=== PATIENT | male | born 1930 | race Caucasian/White ===

== ENCOUNTER 2016-12-10 10:09 | Inpatient (IN) ==
[2016-12-10] MEDS ORDERED: SODIUM CHLORIDE 0.9% 1,000 ML IV STA (10:24)
[2016-12-10] MEDS ORDERED: ONDANSETRON 4 MG/2 ML VIAL IV STA (10:27)
--- NOTE | 2016-12-10 10:29 | Emergency Department Note ---
Bill Duckworth Jamie, am scribing for, and in the presence of, Ramirez Pritchett MD 10: 26. Yarely Duckworth James D, MD, personally performed the services described in this documentation, ascribed by Darwin Khan in my presence, and it is both accurate and complete . Arrival - Arrival Chief Complaint: Abdominal / Flank Pain Stated Complaint: extremely weak and nausea ED Nursing Triage Note: ABD PAIN WITH N/V ONSET THIS AM Mode of Arrival: Wheelchair Limitations: No Limitations Source: Patient, RN Notes Reviewed Time Seen by Provider: 12/10/16 10:23 - History of Present Illness HPI Narrative: Patient is an 86 y/o white male who is presented to the ED by for evaluation of nausea, SOB, weakness, and abdominal pain. states sxs onset this morning. She reports patient being nauseated but unable to vomit due to previous surgery. Patient has no other pain or sxs at time of exam. Onset (ago): hour(s) (3) Consistency: constant Severity: moderate Allergies/Adverse Reactions: Allergies Allergy/AdvReac Type Severity Reaction Status Date / Time sulfamethoxazole Allergy Severe RASH Verified 12/10/16 10:17 [From Bactrim] trimethoprim [From Bactrim] Allergy Severe RASH Verified 12/10/16 10:17 Home Medications: Home Medications Medication Instructions Recorded Confirmed Type Aspirin [Ecotrin] 81 mg PO QAM 06/16/15 12/10/16 History Atorvastatin [Lipitor] 40 mg PO QAM 06/16/15 12/10/16 History Losartan/Hydrochlorothiazide 1 each PO QAM 06/16/15 12/10/16 History [Losartan-Hctz 50-12.5 mg Tab] Pantoprazole Sodium [Protonix] 40 mg PO QPM 06/16/15 12/10/16 History Tamsulosin HCl [Flomax] 0.4 mg PO BEDTIME 06/16/15 12/10/16 History HydrOXYzine PAMOATE CAP [Vistaril 25 mg PO TID PRN 04/24/16 12/10/16 History Cap] Nitroglycerin Sl Tab [Nitrostat] 0.4 mg SL Q5M PRN #1 bottle 04/26/16 12/10/16 Rx Magnesium Chloride [Slow Mag] 64 mg PO BEDTIME 08/03/16 12/10/16 History Memantine [Namenda] 5 mg PO BID #60 tablet 08/21/16 12/10/16 Rx QUEtiapine [SEROquel] 25 mg PO BEDTIME #30 tablet 08/21/16 12/10/16 Rx LORazepam TAB [Ativan Tab] 0.5 mg PO QID PRN 08/30/16 12/10/16 History Ondansetron Tab [Zofran Tab] 4 mg PO QAM PRN 12/10/16 12/10/16 History Review of System - Review of System 12 point system: reviewed and no additional remarkable complaints except as stated - Review of System Constitutional: Present: weakness. Absent: chills, diaphoresis, fever Eyes: Absent: vision change Respiratory: Present: respiratory distress. Absent: cough Cardiovascular: Absent: chest pain Gastrointestinal: Present: abdominal pain, nausea. Absent: vomiting, diarrhea Musculoskeletal: Absent: joint swelling Skin: Absent: rash, change in color Neurological: Absent: headache, weakness, numbness, confusion Hematological/Lymphatic: Absent: easy bleeding, easy bruising Medical,Surgical,& Family Hx - Medical History Cardio: History of: CAD, Hypertension Psychological: History of: Anxiety Disorders, Depression Neurology: History of: Dementia Endocrine: History of: Dyslipidemia Renal: History of: Renal Problems (stricture) Gastrointestinal: History of: GERD Musculoskeletal: History of: Back/Neck Problems (neck surgery) - Surgical History Cardiac Surgeries: Sugical HX of: Cardiac Catheterization (STENT X'S 2013) Neurologic Surgeries: Surgical HX of: Neurologic Surgery (neck surgery) Abdominal Surgeries: Surgical HX of: Abdominal Surgery (1959'S vagotomy), Appendectomy Reproductive Surgeries: Surgical HX of;: Prostate Surgery Orthopedic Surgeries: Surgical HX of;: Orthopedic Surgery (right shoulder) - Family History Family History: Reports;: Family Cancer (Brother, Mother) Comment Only: Family Diabetes (Mother), Family Hypertension (Mother) - Social History Smoking Status: Never smoker Exam Vital Signs: Vital Signs Temperature 97.5 F L 12/10/16 10:12 Pulse Rate 75 12/10/16 10:12 Respiratory Rate 18 12/10/16 10:12 Blood Pressure 87/45 12/10/16 10:12 O2 Sat by Pulse Oximetry 90 L 12/10/16 10:12 GENERAL: This is a well-nourished well-developed disheveled white male in no apparent distress. VITAL SIGNS: Reviewed HEENT: Head is atraumatic and normocephalic. Pupils are equal round react to light. Extraocular movements are intact. Oropharynx is benign with moist mucous membranes. NECK: Neck is soft and supple without tenderness. There are no masses. There is no lymphadenopathy. LUNGS: Lungs are clear to auscultation. Chest rises symmetrically. There is no chest wall tenderness. CV: Heart is regular rate and rhythm without murmurs rubs or gallops. ABDOMEN: Abdomen is soft, nontender to palpation. There are no abdominal abnormal masses palpated. There is no organomegaly. Bowel sounds are present and active. SKIN: Skin is warm and dry. No rash. EXTREMITIES: Patient has full range of motion without tenderness. There is no pedal edema. NEUROLOGIC: Awake, alert. Cranial nerves II through XII are grossly intact. Motor is 5 over 5 in all extremities bilaterally. Course - Consultations Consultation #1: Discussed with Dr. Torres. Patient will be admitted to Dr. Collins service. Initial orders written for him. Time: 11:49 Results - Labs CBC & BMP: 12/10/16 10:43 12/10/16 10:43 Lab Results: I have reviewed the patients labs - EKG EKG results: interpreted by ERMD - Impressions EKG: Normal sinus rhythm with a rate of 66, right bundle branch block, nonspecific ST-T wave changes. - Diagnostic Findings Procedure: Chest x-ray: image reviewed by me (Left-sided atelectasis), CT: report reviewed by me (CT head: No acute intracranial lesion or hemorrhage.) Disposition Clinical Impression: Generalized weakness, Hypotension, Dementia, Nausea Case discussed with: patient's family Disposition: Still a Patient Condition: Guarded
[2016-12-10] MEDS ORDERED: ONDANSETRON 4 MG/2 ML VIAL ONE (10:39)
--- NOTE | 2016-12-10 10:58 | CT Report ---
History: Generalized weakness. Nausea and vomiting Date: 12/10/2016 Study: CT head without contrast Comparison exam: CT head August 20, [address] sections were obtained through the head without IV contrast. Total DLP measures 1195.1 mGy*cm. The ventricles are midline in position without evidence of hydrocephalus. There is [id number] diffuse cerebral atrophy. There is no mass or parenchymal hemorrhage. There is no gross CT evidence of acute cortical stroke. There is a small amount of ill-defined low density in the periventricular white matter without mass effect compatible with changes of small vessel disease. There are small chronic lacunar infarction in the right putamen. There is a prominent perivascular space inferiorly in the left putamen. There is no acute extra-axial hematoma. There is mild distal carotid artery calcification. There is no acute abnormality of the calvarium. The partially visualized paranasal sinuses and mastoid air cells are clear. Impression: No acute intracranial process. 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 No acute process compared to the previous study PROCEDURE INTERPRETED AT [facility] DEPARTMENT OF RADIOLOGY Final Report Signed by: Dr. Harriet Cam
[2016-12-10 10:59] LABS: Basophils % 0.5 % (0.0-0.8); Eosinophils # 0.1 10*3/uL (0.0-0.87); Eosinophils % 3.2 % (0.00-10.9); Hematocrit 38.9 VOL% (42.0-52.0); Immature Granulocytes % 0.2 %; Immature Granulocytes Absolute 0.01 #; Lymphocytes # 1.3 10*3/uL (1.4-4.0); Lymphocytes % 28.6 % (21.2-54.2); Mean Corpuscular HGB Conc 33.4 GM/DL (32-36); Mean Corpuscular Hemoglobin 29 PG (27-34); Mean Platelet Volume 10.2 FL (9.6-12.0); Monocytes # 0.3 10*3/uL (0.11-0.8); Monocytes % 7.6 % (1.7-12.7); Neutrophils # 2.6 10*3/uL (1.4-7.4); Neutrophils % 59.9 % (38.7-73.9); Platelet Count 199 T/CUMM (130-400); Red Blood Count 4.47 MC/CUMM (3.8-5.5); Red Cell Distribution Width 13.8 % (9.3-17.3); White Blood Count 4.4 T/CUMM (4-12)
[2016-12-10 11:22] LABS: Lactic Acid 2.2 MMOL/L (0.4-2.0)
--- NOTE | 2016-12-10 11:23 | XRay Report ---
History: Generalized weakness. Nausea and vomiting Date: 12/10/2016 Study: Chest x-ray single view portable Comparison exam: August 03, 2016 The cardiomediastinal silhouette is unchanged. The pulmonary vasculature is not engorged. There is shallow inspiration with some mild platelike subsegmental atelectasis and/or scarring in the lower lungs, similar to the previous study. There is no pleural effusion. Osseous structures are similar. Impression: Shallow inspiration with platelike scar and or subsegmental atelectasis in the lower lungs similar to the previous exam PROCEDURE INTERPRETED AT [facility] DEPARTMENT OF RADIOLOGY Final Report Signed by: Dr. Harriet Cam
[2016-12-10 11:24] LABS: Albumin 3.5 G/DL (3.4-5.0); Bilirubin,Total 0.6 MG/DL (0.2-1.0); Calcium 8.7 MG/DL (8.5-10.1); Osmolality,Calculated 294.6 MOS/KG (273-304); Potassium 3.7 MMOL/L (3.5-5.1); Total Protein 6.1 G/DL (6.4-8.3)
--- NOTE | 2016-12-10 11:48 | EKG Report ---
Stationary ECG Study [facility] ER Test Date: 12/10/2016 11:46:46 AM Pat Name: MARK EUBANKS Department: Room: Gender: M Vice President Research: : 1930 Requested by: Ramirez Lobo Order Number: [id number] Reading MD: SAMIR LORA Intervals Hinkle Rate: 66 P: 44 SC: 196 QRS: -6 QRSD: 160 T: 5 QT: 436 QTc: 449 Interpretive Statements SINUS RHYTHM RIGHT BUNDLE BRANCH BLOCK Electronically Signed On 12-10-16 11:52:01 TIME CLOCK MECH[employer]IC by SAMIR LORA [email or web address]
[2016-12-10 12:20] LABS: Apearance,Urine CLEAR (Clear); Bilirubin,Urine Negative (Negative); Blood, Urine Negative (Negative); Glucose,Urine (UA) Negative (Negative); Hyaline Casts,Urine 22 /LPF (0-3); Ketones,Urine Negative (Negative); Mucus,Urine Occasional /LPF (Occasional); Nitrite,Urine Positive (Negative); Protein,Urine Negative; RBC,Urine 1 /HPF (0-4); Squamous Epithelial Cell,Urine Occasional /HPF (0-10); Urine Color Amber (Yellow); Urine Specific Gravity 1.009 (1.001-1.035); WBC,Urine <1 /HPF (0-6)
[2016-12-10] MEDS: SODIUM CHLORIDE 0.9% 1,000 ML IV SCH ×2 (13:10→21:39)
[2016-12-10] MEDS: ACETAMINOPHEN 325 MG TABLET PO PRN (14:14)
[2016-12-10] MEDS ORDERED: ONDANSETRON 4 MG TABLET PO PRN (15:38)
[2016-12-10] MEDS ORDERED: LORazepam 0.5 MG TABLET PO ONE (16:00)
[2016-12-10] MEDS ORDERED: HydrOXYzine PAMOATE 25 MG CAPSULE PO PRN (16:04)
[2016-12-10] MEDS ORDERED: NITROGLYCERIN SL 0.4 MG TABLET SL PRN (16:06)
[2016-12-10] MEDS: IBUPROFEN 200 MG TABLET PO PRN (20:40)
[2016-12-10] MEDS: MAGNESIUM CHLORIDE 64 MG TABLET PO SCH (20:40)
[2016-12-10] MEDS: DOCUSATE SODIUM 100 MG CAPSULE PO SCH (20:40)
[2016-12-10] MEDS: LORazepam 0.5 MG TABLET PO SCH (20:41)
[2016-12-10] MEDS: TAMSULOSIN 0.4 MG CAPSULE PO SCH (20:41)
[2016-12-10] MEDS: MEMANTINE 5 MG TABLET PO SCH (20:41)
[2016-12-10] MEDS ORDERED: QUEtiapine 25 MG TABLET PO SCH (21:00)
[2016-12-11] MEDS: SODIUM CHLORIDE 0.9% 1,000 ML IV SCH ×3 (04:52→21:08)
[2016-12-11 07:05] LABS: Basophils % 0.4 % (0.0-0.8); Eosinophils # 0.2 10*3/uL (0.0-0.87); Eosinophils % 3.9 % (0.00-10.9); Hemoglobin 11.1 GM/DL (14.0-18.0); Immature Granulocytes % 0.2 %; Immature Granulocytes Absolute 0.01 #; Lymphocytes # 1.3 10*3/uL (1.4-4.0); Lymphocytes % 26.4 % (21.2-54.2); Mean Corpuscular HGB Conc 32.6 GM/DL (32-36); Mean Corpuscular Hemoglobin 29 PG (27-34); Mean Corpuscular Volume 88.8 FL (87-102); Mean Platelet Volume 9.9 FL (9.6-12.0); Monocytes # 0.4 10*3/uL (0.11-0.8); Monocytes % 8.5 % (1.7-12.7); Neutrophils % 60.6 % (38.7-73.9); Platelet Count 146 T/CUMM (130-400); Red Blood Count 3.83 MC/CUMM (3.8-5.5); Red Cell Distribution Width 13.7 % (9.3-17.3); White Blood Count 4.9 T/CUMM (4-12)
[2016-12-11 07:45] LABS: Albumin 2.7 G/DL (3.4-5.0); Bilirubin,Total 0.4 MG/DL (0.2-1.0); Osmolality,Calculated 293.4 MOS/KG (273-304); Potassium 3.9 MMOL/L (3.5-5.1); Total Protein 4.8 G/DL (6.4-8.3)
--- NOTE | 2016-12-11 07:49 | Family Practice History&Phys ---
Assessment and Plan (1) Dementia Status: Chronic Assessment and plan: 12/11/2016: No new therapy is indicated. Current Visit: Yes (2) Generalized weakness Status: Acute Assessment and plan: 12/11/2016: We will ask physical therapy to evaluate. Current Visit: Yes History of Present Illness Chief complaint: Nausea and abdominal pain History of present illness: Mr. Hernandez is a 86 year old male Patient is a 86-year-old white male who is brought to the emergency room yesterday with complaint of nausea, abdominal pain and not acting right. Patient has a history of dementia and getting a history is most difficult. He denies any abdominal pain this morning. According to his he has a good appetite but has bouts of recurring nausea that he complains of. This seems to have no effect on his appetite and he has not had any vomiting or diarrhea associated with it. He has not had any documented weight loss there is no history of any blood in the stool. Has not had any fever or chills. He denies any urinary symptoms. Once again history is most difficult. Home Medications Medication Instructions Recorded Confirmed Type Aspirin [Ecotrin] 81 mg PO QAM 06/16/15 12/10/16 History Atorvastatin [Lipitor] 40 mg PO QAM 06/16/15 12/10/16 History Losartan/Hydrochlorothiazide 1 each PO QAM 06/16/15 12/10/16 History [Losartan-Hctz 50-12.5 mg Tab] Pantoprazole Sodium [Protonix] 40 mg PO QPM 06/16/15 12/10/16 History Tamsulosin HCl [Flomax] 0.4 mg PO BEDTIME 06/16/15 12/10/16 History HydrOXYzine PAMOATE CAP [Vistaril 25 mg PO TID PRN 04/24/16 12/10/16 History Cap] Nitroglycerin Sl Tab [Nitrostat] 0.4 mg SL Q5M PRN #1 bottle 04/26/16 12/10/16 Rx Magnesium Chloride [Slow Mag] 64 mg PO BEDTIME 08/03/16 12/10/16 History Memantine [Namenda] 5 mg PO BID #60 tablet 08/21/16 12/10/16 Rx QUEtiapine [SEROquel] 25 mg PO BEDTIME #30 tablet 08/21/16 12/10/16 Rx LORazepam TAB [Ativan Tab] 0.5 mg PO QID PRN 08/30/16 12/10/16 History Ibuprofen [Advil] 200 mg PO Q6HR PRN 12/10/16 12/10/16 History Ondansetron Tab [Zofran Tab] 4 mg PO Q4-6H PRN 12/10/16 12/10/16 History Allergies Allergy/AdvReac Type Severity Reaction Status Date / Time sulfamethoxazole Allergy Severe RASH Verified 12/10/16 10:17 [From Bactrim] trimethoprim [From Bactrim] Allergy Severe RASH Verified 12/10/16 10:17 - Constitutional Constitutional: Present: malaise, weakness. Absent: chills, fever(s), weight loss - EENT Eyes: Absent: blurry vision, loss of vision Ears: Absent: decreased hearing, ear pain Nose, mouth and throat: Absent: nasal congestion, sinus pressure, sore throat - Cardiovascular Cardiovascular: Absent: chest pain at rest, dyspnea, dyspnea on exertion, orthopnea, palpitations, PND - Respiratory Respiratory: Absent: cough, wheezing, snoring - Gastrointestinal Gastrointestinal: Present: abdominal pain, nausea, vomiting. Absent: diarrhea, dyspepsia, dysphagia, early satiety, hematochezia, melena - Genitourinary Genitourinary: Absent: dysuria, urinary frequency, urinary incontinence - Musculoskeletal Musculoskeletal: Absent: back pain, joint swelling - Neurological Neurological: Present: confusion. Absent: abnormal gait, focal weakness, numbness, paresthesias - Psychiatric Psychiatric: Present: confusion, difficulty concentrating, memory loss. Absent : auditory hallucinations, panic attacks - Endocrine Endocrine: Absent: fatigue, polydipsia, polyphagia - Hematologic/Lymphatic Hematologic/Lymphatic: Absent: easy bleeding, easy bruising Medical,Surgical,& Family Hx - Medical History Cardio: History of: CAD, Hypertension Psychological: History of: Anxiety Disorders, Depression Neurology: History of: Dementia HEENT: History of: Ear Problem (hard of hearing), Dental Problems (dentures) Endocrine: History of: Dyslipidemia Renal: History of: Renal Problems (stricture) Gastrointestinal: History of: GERD Musculoskeletal: History of: Back/Neck Problems (neck surgery) - Surgical History Cardiac Surgeries: Sugical HX of: Cardiac Catheterization (STENT X'S 2 2013) Neurologic Surgeries: Surgical HX of: Neurologic Surgery (neck surgery) Abdominal Surgeries: Surgical HX of: Abdominal Surgery (1960'S vagotomy), Appendectomy Reproductive Surgeries: Surgical HX of;: Prostate Surgery Orthopedic Surgeries: Surgical HX of;: Orthopedic Surgery (right shoulder) - Family History Family History: Reports;: Family Cancer (Brother, Mother) Comment Only: Family Diabetes (Mother), Family Hypertension (Mother) - Social History Smoking Status: Never smoker Exam - Constitutional Vitals: Period Temp Pulse Resp BP Sys/Puente Pulse Ox Last 24 Hr 97.5 F-98.0 F 56-81 18-20 112-138/65-75 20-98 Exam: General: Objective patient is a well-developed white male in no acute distress. When asked about specifics of his history he rambles into a disjointed diatribe which is impossible to follow. Thankfully his was there to provide some specifics. HEENT: Pupils equal and reactive to light. Patent nares and airway Neck: No meningismus, adenopathy, thyromegaly. There are no auscultated carotid bruits. Cardiovascular: Regular rhythm. No murmurs or gallops Chest: Clear to auscultation without rales rhonchi wheezes. Abdomen: Soft nontender to palpation No masses, rebound, guarding or tenderness. Neuro: Cranial nerves intact and DTRs and strength symmetric in all extremities. Patient is able to follow simple commands. Dermatologic: No evidence of abnormal lesions or masses. Musculoskeletal: There is no joint swelling or tenderness or deformity. Psychiatric: Patient certainly has flight of ideas but no obvious hallucinosis. His affect is normal. Results - Labs CBC & BMP: 12/11/16 06:50 12/11/16 06:50 Lab Results: I have reviewed the past 24 hour labs
[2016-12-11] MEDS: ONDANSETRON 4 MG/2 ML VIAL IV PRN ×2 (08:12→15:57)
[2016-12-11] MEDS ORDERED: PANTOPRAZOLE 40 MG TABLET PO SCH (09:00)
[2016-12-11] MEDS: LORazepam 0.5 MG TABLET PO SCH ×3 (09:31→20:59)
[2016-12-11] MEDS: DOCUSATE SODIUM 100 MG CAPSULE PO SCH ×2 (09:32→21:01)
[2016-12-11] MEDS: ASPIRIN EC 81 MG TABLET PO SCH (09:32)
[2016-12-11] MEDS: LOSARTAN 50 MG TABLET PO SCH (09:33)
[2016-12-11] MEDS: ATORVASTATIN 40 MG TABLET PO SCH (09:33)
[2016-12-11] MEDS: MEMANTINE 5 MG TABLET PO SCH ×2 (09:33→21:01)
[2016-12-11] MEDS: ACETAMINOPHEN 325 MG TABLET PO PRN ×2 (10:53→22:57)
[2016-12-11] MEDS: TAMSULOSIN 0.4 MG CAPSULE PO SCH (20:59)
[2016-12-11] MEDS: QUEtiapine 25 MG TABLET PO SCH (21:00)
[2016-12-11] MEDS: MAGNESIUM CHLORIDE 64 MG TABLET PO SCH (21:00)
[2016-12-11] MEDS: guaiFENesin 200 MG/10 ML UDCUP PO PRN (22:50)
[2016-12-12] MEDS: SODIUM CHLORIDE 0.9% 1,000 ML IV SCH ×4 (00:16→21:05)
[2016-12-12] MEDS: ONDANSETRON 4 MG/2 ML VIAL IV PRN (07:07)
--- NOTE | 2016-12-12 08:21 | Family Practice Progress Note ---
Family Practice - PN: Subj Interval history: Patient continues to complain of nausea this morning. He has not vomited and his appetite has been good. He certainly appears to get some positive feedback from his who is in hover mode at present. She told me he complains of nausea all the time at home but eats very well. Told her we could arrange for him to have an EGD and I will check some liver enzymes and lipase today. I think the majority of his problems are related to his dementia. His stepdaughter told me that he has been having clear evidence of sundowners at home. I increased his Seroquel. Exam (Progress Note) - Constitutional Vitals: Period Temp Pulse Resp BP Sys/Puente Pulse Ox Last 24 Hr 97.1 F-98 F 60-72 18-20 102-162/54-75 91-97 Exam: Objective a well-developed white male no acute distress. His is at the bedside and terribly worried about him. Certainly no respiratory distress and he denies any chest pain. Cardiovascular: Heart rate is regular without murmurs or gallops Respiratory: Lungs clear to auscultation bilaterally Abdomen: Patient has some epigastric tenderness directly. Results - Labs CBC & BMP: 12/11/16 06:50 12/11/16 06:50 Lab Results: I have reviewed the past 24 hour labs Assessment and Plan (1) Dementia Status: Chronic Assessment and plan: 12/11/2016: No new therapy is indicated. 12/12/2016: I did increase his Seroquel last night. He apparently slept fairly well. Current Visit: Yes (2) Generalized weakness Status: Acute Assessment and plan: 12/11/2016: We will ask physical therapy to evaluate. 12/12/2016: Is complaining of abdominal pain this morning we will ask GI to see him as well. Current Visit: Yes
[2016-12-12] MEDS: ACETAMINOPHEN 325 MG TABLET PO PRN (08:41)
[2016-12-12] MEDS ORDERED: ASPIRIN EC 81 MG TABLET PO SCH (09:00)
--- NOTE | 2016-12-12 09:14 | Gastrointestinal Consult Note ---
Assessment and Plan (1) Nausea Status: Acute Assessment and plan: 12/12-Reports of ongoing nausea w/o vomiting, weakness and abdominal pain-denied by patient-hx of vagotomy in , appendectomy. No weight loss noted since last admission in March 2016, with 12-15 pd wt gain. Reports nausea worse since medications increased 2 months ago. Protonix daily. Last endoscopy 2008. Further labwork pending at present. Plan for gallbaldder US and tentative scheduled EGD tomorrow to further evaluate. Plan and addendum to follow by DR Cam Current Visit: Yes History of Present Illness Chief complaint: Nausea History of present illness: Mr. Hernandez is a 86 year old male who presented to the hospital with ongoing nausea. Pt is a fair historian with history of dementia. His is present at bedside and assists in history, Information also obtained from chart review. Pt has had an increase in nausea, on a daily basis, over the last two months. Pt states that he will complain of this several times per day however he does not vomit. He has a history of a vagotomy in the and has not vomited since then. He has had adequate intake of his nutrition and it only seems to affect eating in that he may eat later than his usual meal time if the nausea occurs. Pt also has been reported to complain of some epigastric pain/ discomfort recently. Pt and cannot recall any melena or hematochezia however they do not look at his stools. He has had no significant weight loss reported with a 12-15 pd weight gain noted since last inpatient stay last year over the last 9 months. He takes an occasional Aleve for general OA. Pt does states she noted his complaints did increase around the same time his medications for his dementia were increased. He does still have his gallbladder. Last endoscopy was in 2008 with EGD with dilation and C-scope with findings of diverticulosis. Hemoglobin 11. UA pending with C and S to follow. Home Medications Medication Instructions Recorded Confirmed Type Aspirin [Ecotrin] 81 mg PO QAM 06/16/15 12/10/16 History Atorvastatin [Lipitor] 40 mg PO QAM 06/16/15 12/10/16 History Losartan/Hydrochlorothiazide 1 each PO QAM 06/16/15 12/10/16 History [Losartan-Hctz 50-12.5 mg Tab] Pantoprazole Sodium [Protonix] 40 mg PO QPM 06/16/15 12/10/16 History Tamsulosin HCl [Flomax] 0.4 mg PO BEDTIME 06/16/15 12/10/16 History HydrOXYzine PAMOATE CAP [Vistaril 25 mg PO TID PRN 04/24/16 12/10/16 History Cap] Nitroglycerin Sl Tab [Nitrostat] 0.4 mg SL Q5M PRN #1 bottle 04/26/16 12/10/16 Rx Magnesium Chloride [Slow Mag] 64 mg PO BEDTIME 08/03/16 12/10/16 History Memantine [Namenda] 5 mg PO BID #60 tablet 08/21/16 12/10/16 Rx QUEtiapine [SEROquel] 25 mg PO BEDTIME #30 tablet 08/21/16 12/10/16 Rx LORazepam TAB [Ativan Tab] 0.5 mg PO QID PRN 08/30/16 12/10/16 History Ibuprofen [Advil] 200 mg PO Q6HR PRN 12/10/16 12/10/16 History Ondansetron Tab [Zofran Tab] 4 mg PO Q4-6H PRN 12/10/16 12/10/16 History Allergies Allergy/AdvReac Type Severity Reaction Status Date / Time sulfamethoxazole Allergy Severe RASH Verified 12/10/16 10:17 [From Bactrim] trimethoprim [From Bactrim] Allergy Severe RASH Verified 12/10/16 10:17 Medical,Surgical,& Family Hx - Medical History Cardio: History of: CAD, Hypertension Psychological: History of: Anxiety Disorders, Depression Neurology: History of: Dementia HEENT: History of: Ear Problem (hard of hearing), Dental Problems (dentures) Endocrine: History of: Dyslipidemia Renal: History of: Renal Problems (stricture) Gastrointestinal: History of: GERD Musculoskeletal: History of: Back/Neck Problems (neck surgery) - Surgical History Cardiac Surgeries: Sugical HX of: Cardiac Catheterization (STENT X'S 2013) Neurologic Surgeries: Surgical HX of: Neurologic Surgery (neck surgery) Abdominal Surgeries: Surgical HX of: Abdominal Surgery (1960S vagotomy), Appendectomy Reproductive Surgeries: Surgical HX of;: Prostate Surgery Orthopedic Surgeries: Surgical HX of;: Orthopedic Surgery (right shoulder) - Family History Family History: Reports;: Family Cancer (Brother, Mother) Comment Only: Family Diabetes (Mother), Family Hypertension (Mother) - Social History Smoking Status: Never smoker 12 point system: reviewed and no additional remarkable complaints except as stated - Constitutional Constitutional: Present: as per HPI - EENT Eyes: Present: as per HPI Ears: Present: as per HPI Nose, mouth and throat: Present: as per HPI - Cardiovascular Cardiovascular: Present: as per HPI - Respiratory Respiratory: Present: as per HPI - Gastrointestinal Gastrointestinal: Present: as per HPI, nausea - Genitourinary Genitourinary: Present: as per HPI - Musculoskeletal Musculoskeletal: Present: as per HPI - Neurological Neurological: Present: as per HPI - Psychiatric Psychiatric: Present: as per HPI - Endocrine Endocrine: Present: as per HPI - Hematologic/Lymphatic Hematologic/Lymphatic: Present: as per HPI Exam - Constitutional Vitals: Period Temp Pulse Resp BP Sys/Puente Pulse Ox Last 24 Hr 97.1 F-98 F 60-72 18-20 102-162/54-75 91-97 General appearance: normal weight, no acute distress - Head Head exam: Present: normal inspection, normocephalic - Eye Eye exam: Present: other (lids and conjunctiva unremarkable). Absent: scleral icterus - ENT ENT exam: Present: normal exam, normal oropharynx - Neck Neck exam: Present: normal inspection - Respiratory Respiratory exam: Present: clear to auscultation bilaterally. Absent: rales, rhonchi, wheezes - Cardiovascular Cardiovascular exam: Present: regular rate and rhythm. Absent: diastolic murmur , JVD, systolic murmur - GI/Abdominal GI/Abdominal exam: Present: normal bowel sounds, soft. Absent: ascites, distended, mass, organomegaly, tenderness - Extremities Exam Extremities exam: Present: normal inspection, full ROM - Back Exam Back exam: Present: normal inspection - Neurological Exam Neurological exam: Present: alert, oriented X3 - Psychiatric Psychiatric exam: Present: normal affect, normal mood - Skin Skin exam: Present: normal color, warm, dry Results - Labs CBC & BMP: 12/11/16 06:50 12/11/16 06:50 Lab Results: I have reviewed the past 24 hour labs
[2016-12-12] MEDS: ASPIRIN EC 81 MG TABLET PO SCH (09:30)
[2016-12-12] MEDS: LORazepam 0.5 MG TABLET PO SCH ×4 (09:31→22:15)
[2016-12-12] MEDS: DOCUSATE SODIUM 100 MG CAPSULE PO SCH ×2 (09:32→22:14)
[2016-12-12] MEDS: ATORVASTATIN 40 MG TABLET PO SCH (09:32)
[2016-12-12] MEDS: LOSARTAN 50 MG TABLET PO SCH (09:32)
[2016-12-12] MEDS: MEMANTINE 5 MG TABLET PO SCH ×2 (09:33→22:14)
[2016-12-12] MEDS: PANTOPRAZOLE 40 MG TABLET PO SCH ×2 (09:33→22:14)
[2016-12-12 09:52] LABS: Basophils % 0.7 % (0.0-0.8); Eosinophils # 0.2 10*3/uL (0.0-0.87); Eosinophils % 4.1 % (0.00-10.9); Hematocrit 35.7 VOL% (42.0-52.0); Hemoglobin 11.5 GM/DL (14.0-18.0); Immature Granulocytes % 0.7 %; Immature Granulocytes Absolute 0.03 #; Lymphocytes # 1.2 10*3/uL (1.4-4.0); Lymphocytes % 26.4 % (21.2-54.2); Mean Corpuscular HGB Conc 32.2 GM/DL (32-36); Mean Corpuscular Hemoglobin 29 PG (27-34); Mean Corpuscular Volume 89.5 FL (87-102); Mean Platelet Volume 10.2 FL (9.6-12.0); Monocytes # 0.3 10*3/uL (0.11-0.8); Monocytes % 6.2 % (1.7-12.7); Neutrophils # 2.7 10*3/uL (1.4-7.4); Neutrophils % 61.9 % (38.7-73.9); Platelet Count 148 T/CUMM (130-400); Red Blood Count 3.99 MC/CUMM (3.8-5.5); Red Cell Distribution Width 13.8 % (9.3-17.3); White Blood Count 4.4 T/CUMM (4-12)
[2016-12-12 10:25] LABS: Bilirubin,Direct 0.2 MG/DL (0.0-0.20); Bilirubin,Indirect 0.3 MG/DL (0.0-1.0); Bilirubin,Total 0.5 MG/DL (0.2-1.0); Total Protein 5.1 G/DL (6.4-8.3)
--- NOTE | 2016-12-12 13:41 | Physician Query Form ---
CLICK EDIT DOCUMENT TO SELECT QUERY ANSWER --> OK --> SIGN Teresita Sesay RN Clinical Stone Crusher Operator W) [phone] (f) [phone] [email or web address]: Make your selection(s) from the choices in EACH section by typing an "x" and enter comments in the comment section. Please use your independent medical judgment in providing your response. This request does not imply that any particular answer is desired or expected. CLINICAL INDICATORS: (Providers should not edit this section) Based on lab results of creatinine on admission of 1.60 with a GFR of 45 and decreased to 1.20. Pt. treated with IV fluids of Normal Saline. Clarify which of the following most accurately represents the patient's renal status: ( ) Acute kidney injury (non-traumatic) ( x) Acute renal failure ( ) Acute renal failure with underlying Chronic Kidney Disease (CKD) - please provide stage below ( ) CKD - please provide stage below ( ) Other, please specify: ( ) Clinically unable to determine Chronic Kidney Disease Stages Source: National Kid[employer] ( ) Stage I (eGFR > or = 90) (x ) Stage II (eGFR 60 - 89) ( ) Stage III (eGFR 30 - 59) ( ) Stage IV (eGFR 15 - 29) ( ) Stage V (eGFR < 15 or dialysis) COMMENTS: Use of terms such as suspected, likely, or probable (associated with a specific diagnosis that is being evaluated, monitored, or treated as if it exists) are acceptable and can be restated in the discharge summary if not ruled out. MTDD
[2016-12-12] MEDS: MAGNESIUM CHLORIDE 64 MG TABLET PO SCH (22:14)
[2016-12-12] MEDS: TAMSULOSIN 0.4 MG CAPSULE PO SCH (22:15)
[2016-12-12] MEDS: QUEtiapine 25 MG TABLET PO SCH (22:15)
[2016-12-12] MEDS: guaiFENesin 200 MG/10 ML UDCUP PO PRN (22:43)
[2016-12-13] MEDS: SODIUM CHLORIDE 0.9% 1,000 ML IV SCH ×5 (04:11→20:57)
[2016-12-13] MEDS ORDERED: PROPOFOL 200 MG/20 ML VIAL IV ONE (08:00)
[2016-12-13] MEDS ORDERED: LIDOCAINE 2% 5 ML VIAL ONE (08:00)
--- NOTE | 2016-12-13 08:04 | Ultrasound Report ---
US gallbladder Indication: Nausea. Epigastric abdominal pain. ULTRASOUND ABDOMEN, limited Comparison: None Findings: Liver: Unremarkable Gallbladder: Unremarkable, negative sonographic [place]'s. Common bile duct: 4 mm Pancreas: Obscured by bowel gas Right kidney: 10.2 cm length. No mass, cyst, calcification or obstruction Impression: Negative ultrasound. PROCEDURE INTERPRETED AT [facility] [place] DEPARTMENT OF RADIOLOGY Final Report Signed by: Brien Farnsworth M.D.
[2016-12-13] MEDS: ONDANSETRON 4 MG/2 ML VIAL IV PRN ×2 (08:10→14:35)
--- NOTE | 2016-12-13 08:36 | Family Practice Progress Note ---
Family Practice - PN: Subj Interval history: Patient apparently had fairly good not according to his . Patient is going for his EGD and gallbladder ultrasound this morning. Results of the ultrasound showed no abnormality. We will await his EGD report. Exam (Progress Note) - Constitutional Vitals: Period Temp Pulse Resp BP Sys/Puente Pulse Ox Last 24 Hr 97.2 F-98.1 F 64-87 18-20 127-158/65-84 92-94 Results - Labs CBC & BMP: 12/12/16 09:21 12/11/16 06:50 Assessment and Plan (1) Dementia Status: Chronic Assessment and plan: 12/11/2016: No new therapy is indicated. 12/12/2016: I did increase his Seroquel last night. He apparently slept fairly well. Current Visit: Yes (2) Generalized weakness Status: Acute Assessment and plan: 12/11/2016: We will ask physical therapy to evaluate. 12/12/2016: Is complaining of abdominal pain this morning we will ask GI to see him as well. Current Visit: Yes
[2016-12-13] MEDS: MEMANTINE 5 MG TABLET PO SCH (09:00)
[2016-12-13] MEDS: LOSARTAN 50 MG TABLET PO SCH ×2 (09:00→14:37)
[2016-12-13] MEDS: ATORVASTATIN 40 MG TABLET PO SCH ×2 (09:00→14:36)
[2016-12-13] MEDS: LORazepam 0.5 MG TABLET PO SCH ×3 (09:00→20:50)
[2016-12-13] MEDS: ASPIRIN EC 81 MG TABLET PO SCH (09:00)
[2016-12-13] MEDS: PANTOPRAZOLE 40 MG TABLET PO SCH ×3 (09:00→20:50)
[2016-12-13] MEDS: DOCUSATE SODIUM 100 MG CAPSULE PO SCH ×2 (09:00→20:50)
--- NOTE | 2016-12-13 12:13 | History and Physical Update ---
History and Physical Update - History and Physical H&P was reviewed, the patient examined and there: are no changes in the patients condition since last H&P was completed. - Physical Exam Mental Status: alert and oriented Heart: regular rate and rhythm Lung: clear to auscultation Abdomen: within normal limits Vitals: within normal limits
--- NOTE | 2016-12-13 12:26 | Anesthesia ---
Anesthesia Post OP - Post Ansesthetic Evaluation Patient seen in post op: Yes Resp: within normal limits CV: within normal limits Mental: within normal limits Temp: within normal limits [id number]: within normal limits Nausea and Vomiting: within normal limits Pain: within normal limits
--- NOTE | 2016-12-13 12:26 | Operative Note ---
Date of procedure: 12/13/16 Pre-op diagnosis: Chronic nausea Procedure: Procedure: Esophagogastroduodenoscopy Brief clinical abstract: Patient is an 86-year-old male with history of remote peptic ulcer disease surgery in the 1960s with vagotomy and pyloroplasty. He has had recurrent nausea and vomiting over the last couple months and significant weight loss. Indication for procedure: Nausea/vomiting, weight loss Endoscopic findings:[After informed consent was obtained, the patient was placed in the left lateral decubitus position. The gastroscope was inserted in the upper esophagus under direct vision with no resistance encountered. Esophageal mucosa appeared normal with [place], junction sharply demarcated at the diaphragmatic indentation. The endoscope was advanced in the stomach which was carefully examined including retroflexed view of the cardia and fundus. There was evidence of previous pyloroplasty with gastric outlet widely patent. Duodenal bulb as well as second third portion of the duodenum had normal appearance. The endoscope was withdrawn and patient appeared to tolerate the procedure well. Impression: Previous pyloroplasty-otherwise normal EGD Recommendations: Follow-up ultrasound results today. If normal, would probably consider CT abdomen/pelvis given significant weight loss. Anesthesia: MAC Surgeon / Physician: Bimal Cam Estimated blood loss: none Specimens: none sent Condition: stable Disposition: post procedure unit Results - Labs CBC & BMP: 12/12/16 09:21 12/11/16 06:50 Discharge Plan - Discharge Medications No Action Losartan/Hydrochlorothiazide [Losartan-Hctz 50-12.5 mg Tab] 1 each PO QAM Atorvastatin [Lipitor] 40 mg PO QAM Aspirin [Ecotrin] 81 mg PO QAM Tamsulosin HCl [Flomax] 0.4 mg PO BEDTIME Pantoprazole Sodium [Protonix] 40 mg PO QPM HydrOXYzine PAMOATE CAP [Vistaril Cap] 25 mg PO TID PRN PRN Reason: Nausea Nitroglycerin Sl Tab [Nitrostat] 0.4 mg SL Q5M PRN #1 bottle PRN Reason: Chest Pain Magnesium Chloride [Slow Mag] 64 mg PO BEDTIME Memantine [Namenda] 5 mg PO BID #60 tablet QUEtiapine [SEROquel] 25 mg PO BEDTIME #30 tablet LORazepam TAB [Ativan Tab] 0.5 mg PO QID PRN PRN Reason: Agitation Ibuprofen [Advil] 200 mg PO Q6HR PRN PRN Reason: Pain Mild To Moderate (1-7) Ondansetron Tab [Zofran Tab] 4 mg PO Q4-6H PRN PRN Reason: Nausea/Vomiting - Follow Up or Referral - Forms/Instructions
[2016-12-13] MEDS: IBUPROFEN 200 MG TABLET PO PRN (16:40)
[2016-12-13] MEDS: TAMSULOSIN 0.4 MG CAPSULE PO SCH (20:50)
[2016-12-13] MEDS: MAGNESIUM CHLORIDE 64 MG TABLET PO SCH (20:50)
[2016-12-13] MEDS: guaiFENesin 200 MG/10 ML UDCUP PO PRN (21:00)
--- NOTE | 2016-12-13 23:16 | Cardiology Consult Note ---
I, Maribel Moran, RN, am scribing for, and in the presence of, Gus Nunez MD 23:15. Assessment and Plan - Time spent with patient Time spent with patient: Less than 30 minutes (1) Nausea Status: Acute Assessment and plan: 12/13/16: Patient appears to be stable from a cardiac standpoint at this time. Regular heart rate, blood pressure has been fairly well controlled. He could have some diastolic heart failure. Continue some low dose Lasix, might decrease in all follow-up His nausea could have multiple etiologies. We will defer to GI medicine His blood pressure is labile. I suspect he may have some obstructive sleep apnea which could be contributing to some of his problems. given his dementia , there may not be much rx for this dx He is probably about the best we can do. His prognosis is very guarded. Current Visit: Yes (2) Generalized weakness Status: Acute Current Visit: Yes (3) Dementia Status: Chronic Current Visit: No (4) Coronary artery disease Status: Acute Current Visit: No (5) Essential hypertension Status: Acute Current Visit: No (6) Diastolic heart failure Status: Acute Current Visit: Yes (7) Suspected sleep apnea Status: Acute Current Visit: Yes History of Present Illness - Data of Consult Patient: new to practice (formerly followed by Dr. Vo) Consult date: 12/13/16 Requesting Physician: Jose Collins - Consult Narrative Reason for consult: Patient known to us History of present illness: Mr. Hernandez is a 86 year old male who was previously followed by Dr. Vo. He has an appointment scheduled to establish care with Dr. Nunez. He has a history of diastolic congestive heart failure, dementia, coronary artery disease, hypertension, dyslipidemia, gastroesophageal reflux disease, anxiety, and depression. He received a stent to the PDA in 2013. Noninvasive evaluations since that time have been negative. He has risk factors significant for: age, personal history, sedentary lifestyle, hypertension, dyslipidemia. He presented to the emergency room on 12/10/16 with complaints of nausea, abdominal pain, and "not acting himself." There is no family present and obtaining a history is difficult. Much of the history is obtained from his records. Gastroenterology was consulted for ongoing nausea and the patient has undergone an esophagogastroduodenoscopy by Dr. Cam this morning which showed evidence of prior pyloroplasty but was otherwise normal. Ultrasound of the gallbladder showed no abnormality. We were called in due to a question regarding his Lasix and dehydration. I called his since she was not present and she informed me that several months ago she noticed her had some periorbital edema and a wet cough and when she mentioned this to Dr. Collins, her was placed on a low-dose of Lasix every other day. She said that since that time his dementia medications have also been increased and it is suspected that these are causing him to be severely nauseated. The patient does have an appointment to establish care with Dr. Dee on 2016 at 8 o'clock a.m. but his was wondering if they needed to continue to hold the Lasix following discharge for resume this medication. He does not appear to be dehydrated currently. He is on normal saline at 150 ml/hr. Previous echocardiogram done 04/24/16 revealed mild concentric left ventricular hypertrophy with diastolic dysfunction, ejection fraction of 55%, mild mitral regurgitation, aortic valve sclerosis without stenosis, and mild aortic insufficiency. He was last hospitalized with diastolic heart failure around the time of his previous echo. The patient denies recent chest pain, shortness of breath, palpitations, dizziness, lightheadedness, syncope, or recent edema. According to the records, his family reports he has been showing evidence of sundowner's at home. CC: Jose Collins MD - Home Medications and Allergies Home Medications: Home Medications Medication Instructions Recorded Confirmed Type Aspirin [Ecotrin] 81 mg PO QAM 06/16/15 12/10/16 History Atorvastatin [Lipitor] 40 mg PO QAM 06/16/15 12/10/16 History Losartan/Hydrochlorothiazide 1 each PO QAM 06/16/15 12/10/16 History [Losartan-Hctz 50-12.5 mg Tab] Pantoprazole Sodium [Protonix] 40 mg PO QPM 06/16/15 12/10/16 History Tamsulosin HCl [Flomax] 0.4 mg PO BEDTIME 06/16/15 12/10/16 History HydrOXYzine PAMOATE CAP [Vistaril 25 mg PO TID PRN 04/24/16 12/10/16 History Cap] Nitroglycerin Sl Tab [Nitrostat] 0.4 mg SL Q5M PRN #1 bottle 04/26/16 12/10/16 Rx Magnesium Chloride [Slow Mag] 64 mg PO BEDTIME 08/03/16 12/10/16 History Memantine [Namenda] 5 mg PO BID #60 tablet 08/21/16 12/10/16 Rx QUEtiapine [SEROquel] 25 mg PO BEDTIME #30 tablet 08/21/16 12/10/16 Rx LORazepam TAB [Ativan Tab] 0.5 mg PO QID PRN 08/30/16 12/10/16 History Ibuprofen [Advil] 200 mg PO Q6HR PRN 12/10/16 12/10/16 History Ondansetron Tab [Zofran Tab] 4 mg PO Q4-6H PRN 12/10/16 12/10/16 History Allergies/Adverse Reactions: Allergies Allergy/AdvReac Type Severity Reaction Status Date / Time sulfamethoxazole Allergy Severe RASH Verified 12/10/16 10:17 [From Bactrim] trimethoprim [From Bactrim] Allergy Severe RASH Verified 12/10/16 10:17 12 point system: reviewed and no additional remarkable complaints except as stated Medical,Surgical,& Family Hx - Medical History Cardio: History of: CAD, Hypertension Psychological: History of: Anxiety Disorders, Depression Neurology: History of: Dementia HEENT: History of: Ear Problem (hard of hearing), Dental Problems (dentures) Endocrine: History of: Dyslipidemia Renal: History of: Renal Problems (stricture) Gastrointestinal: History of: GERD Musculoskeletal: History of: Back/Neck Problems (neck surgery) - Surgical History Cardiac Surgeries: Sugical HX of: Cardiac Catheterization (STENT X'S 2013) Neurologic Surgeries: Surgical HX of: Neurologic Surgery (neck surgery) Abdominal Surgeries: Surgical HX of: Abdominal Surgery (1959'S vagotomy), Appendectomy Reproductive Surgeries: Surgical HX of;: Prostate Surgery Orthopedic Surgeries: Surgical HX of;: Orthopedic Surgery (right shoulder) - Family History Family History: Reports;: Family Cancer (Brother, Mother) Comment Only: Family Diabetes (Mother), Family Hypertension (Mother) - Social History Smoking Status: Never smoker Physical Examination Vital Signs Temp Pulse Resp BP Pulse Ox 97.5 F L 75 18 87/45 90 L 12/10/16 10:12 12/10/16 10:12 12/10/16 10:12 12/10/16 10:12 12/10/16 10:12 General: Present: No Apparent Distress, Other (appears chronically ill and feeble) HEENT: Present: Normocephaly, Mucus Membranes Moist Neck: Present: Supple Neck, Midline Trachea, No Masses, No Bruit Cardiac: Present: Reg Rate and Rhythm, No Murmur Lungs: Present: Normal Exam, Normal Breath Sounds, No Wheeze, Rales, Rhonchi Neuro: Absent: Resting Tremor, Essential Tremor Abdomen: Present: Soft, Active Bowel Sounds, Non-Tender Skin: Present: Clear. Absent: Rash Musculoskeletal: Present: No Fluid Collection, No Pain, Normal Range of Motion Extremities: Present: No Clubbing, No Cyanosis, No Edema, Normal Upper Extr. Pulses, Normal Lower Extr. Pulses Result/EKG - Labs CBC & BMP: 12/12/16 09:21 12/11/16 06:50 Lab Results: I have reviewed the past 24 hour labs - EKG EKG results: interpreted by me, sinus rhythm (with right bundle branch block) I, Gus Nunez MD, personally performed the services described in this documentation, ascribed by Maribel Moran RN in my presence, and it is both accurate and complete [id number] .
[2016-12-14] MEDS: guaiFENesin 200 MG/10 ML UDCUP PO PRN (02:00)
[2016-12-14] MEDS: SODIUM CHLORIDE 0.9% 1,000 ML IV SCH (03:59)
[2016-12-14] MEDS: ONDANSETRON 4 MG/2 ML VIAL IV PRN (06:47)
--- NOTE | 2016-12-14 06:47 | CT Report ---
CT abdomen pelvis w con Indication: Abdominal pain Comparison: None. Technique: CT of the abdomen and pelvis was performed following administration of intravenous contrast. Findings: Dependent airspace attenuation and volume loss compatible with atelectasis is demonstrated involving the lower lobes. Additionally present, there appears to be pulmonary venous congestive changes bilaterally. The bilateral pulmonary arteries are enlarged. This finding is nonspecific but could reflect evidence of pulmonary arterial hypertension. Coronary artery calcifications are present. Multiple esophageal varices are suggested within the lower chest. Ascites is noted surrounding the liver. The amount is small. There is a small 8 to 9 mm rounded focus of enhancement within the right hepatic lobe image #34 adjacent to right hepatic vein. This isoattenuates within the delayed phase. Small calcification distally is present within the dome of the liver anteriorly image #21. Liver otherwise demonstrates no significant abnormality. Spleen is normal in appearance. No specific abnormality of the lower esophagus or stomach is demonstrated. Pancreas demonstrates no significant abnormality. Adrenal glands demonstrate no significant abnormality. Multiple bilateral renal cysts are demonstrated. The largest within the right kidney is located within the posterior cortex of the mid kidney measuring up to 2.6 cm. The largest within the left kidney is located within the upper pole cortex and measures 2.8 cm. Aorta demonstrates diffuse intimal calcification without evidence of aneurysmal dilatation. These calcifications extend bilaterally into the iliac arteries. Prostate is upper limits of normal in size measuring 5.3 cm in transverse dimension. Multiple colonic diverticula are noted along the descending and sigmoid colon. Some images of the proximal sigmoid colon, periserosal fat stranding is not excluded. No wall thickening is present. Bony structures demonstrate no acute osseous findings. Degenerative changes of the femoral acetabular joints appear moderate. Bilateral facet joint arthropathy in the lower lumbar spine is noted. Soft tissues and muscles which are of the body wall demonstrate no significant abnormalities. Impression: 1. Colonic diverticulosis involving descending and sigmoid colon is present. On some images, there is suggested minimal increase in periserosal fat stranding in the region sigmoid colon and minimal inflammatory change is not excluded. This could reflect very minimal diverticulitis. 2. Multiple bilateral renal cysts are demonstrated. 3. Subcentimeter focus of attenuation within the right hepatic lobe adjacent to right hepatic vein is nonspecific in appearance and statistically represents a small focus of focal nodular hyperplasia or flash filling hemangioma. Further evaluation, however, is limited secondary to small size. 4. Small amount ascites is noted adjacent the liver. Given the presence of esophageal varices, cirrhosis and/or portal venous hypertension could be considered. Spleen, however, is normal in size. 5. Bilateral pleural effusions are present. 6. Dependent and compressive atelectatic changes of the lower lobes is demonstrated. 7. Coronary artery calcifications are present. 8. Pulmonary arterial hypertension and pulmonary vascular congestive changes could be considered. 12/14/2016 6:37 AM PROCEDURE INTERPRETED AT [facility] DEPARTMENT OF RADIOLOGY Final Report Signed by: Dr. Adal Preciado
--- NOTE | 2016-12-14 07:52 | Discharge Summary ---
Hospital Course - Hospital Course Hospital Course: Patient is a 86-year-old gentleman admitted to the emergency room with dehydration. He has been nauseated for some time but never vomits. His appetite was decreased and he was admitted for further evaluation of nausea and vomiting. Patient had a CT of abdomen, EGD and gallbladder ultrasound all of which were unrevealing. Patient did have some bibasilar atelectasis on CT and incentive spirometry was begun. Patient is anxious to go home. Dr. Cam thought that his nausea vomiting be related to the Seroquel and Namenda which were held. 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 I have discussed with [facility] psych unit with and she is opposed to that at this time. Patient be discharged home on present meds. Diagnosis - Discharge Diagnosis (1) Dementia Status: Chronic (2) Generalized weakness Status: Acute Discharge Plan - Discharge Data Disposition: Disch To Home/Self Care Condition at Discharge: Stable Discharge Diet: advance to your usual diet Activity: resume usual activities as tolerated Hygiene: no restrictions Weight Bearing at Discharge: full weight bearing Driving: no restrictions Contact your physician if you experience:: fever over 101 - Discharge Medications New Acetaminophen Tab [Tylenol Tab] 650 mg PO Q6H PRN #0 tablet PRN Reason: Fever > 100.4 Or Headache Furosemide Tab [Lasix Tab] 20 mg PO DAILY tablet Aspirin EC Tab 81 mg PO DAILY tablet Continue Losartan/Hydrochlorothiazide [Losartan-Hctz 50-12.5 mg Tab] 1 each PO QAM Atorvastatin [Lipitor] 40 mg PO QAM Aspirin [Ecotrin] 81 mg PO QAM Tamsulosin HCl [Flomax] 0.4 mg PO BEDTIME Pantoprazole Sodium [Protonix] 40 mg PO QPM HydrOXYzine PAMOATE CAP [Vistaril Cap] 25 mg PO TID PRN PRN Reason: Nausea Nitroglycerin Sl Tab [Nitrostat] 0.4 mg SL Q5M PRN #1 bottle PRN Reason: Chest Pain Magnesium Chloride [Slow Mag] 64 mg PO BEDTIME LORazepam TAB [Ativan Tab] 0.5 mg PO QID PRN PRN Reason: Agitation Ibuprofen [Advil] 200 mg PO Q6HR PRN PRN Reason: Pain Mild To Moderate (1-7) Ondansetron Tab [Zofran Tab] 4 mg PO Q4-6H PRN PRN Reason: Nausea/Vomiting Discontinued Memantine [Namenda] 5 mg PO BID #60 tablet QUEtiapine [SEROquel] 25 mg PO BEDTIME #30 tablet - Follow Up or Referral - Forms/Instructions Exam - Constitutional Vitals: Period Temp Pulse Resp BP Sys/Puente Pulse Ox Last 24 Hr 96.5 F-98.8 F 57-88 16-25 105-175/62-094 90-98 Exam: Objective a well-developed white male no acute distress. His is at the bedside and terribly worried about him. Patient continues to complain of nausea. Cardiovascular: Heart rate is regular without murmurs or gallops Respiratory: Lungs clear to auscultation bilaterally Abdomen: Patient has some epigastric tenderness directly. DS: Provider Date of admission: 12/10/16 11:53 Primary care physician: . No PCP Attending physician on admission: Jose Collins MD Consults: 12/10/16 12:46 Consult to Case Mgmt/Social Srvs [CONS] Routine Reason for Case Mgmt/Social Srvs: Discharge Planning 12/10/16 12:49 Consult to Pharmacy [CONS] Routine Reason for Pharmacy Consult: Adjust Meds Renal Funct 12/11/16 07:42 Consult to Physical Therapy [CONS] Routine Reason for Physical Therapy: Ambulation 12/12/16 08:17 Consult to Physician [CONS] Routine Comment: Consulting Provider: Bimal Cam Consulting Provider Notified: Yes When should Consulting Provider be notified: Now Consult to Specialist Group: Gastroenterology When should Consulting Provider be notified: Now Person Notified: JOSEPH Date Notified: 12/12/16 Time Notified: 10:21 12/12/16 17:07 Consult to Physician [CONS] Routine Comment: pt. known to you concerned about lasix/dehydration Consulting Provider: Gus Nunez Consulting Provider Notified: Yes When should Consulting Provider be notified: Now Consult to Specialist Group: Cardiology When should Consulting Provider be notified: Now Person Notified: ANA Date Notified: 12/13/16 Time Notified: 08:31 Discharging clinician: Jose Collins MD Expected date of discharge: 12/14/16
[2016-12-14] MEDS ORDERED: FUROSEMIDE 20 MG TABLET PO SCH (09:00)
[2016-12-14] MEDS: IBUPROFEN 200 MG TABLET PO PRN (09:17)
[2016-12-14] MEDS: ASPIRIN EC 81 MG TABLET PO SCH (09:19)
[2016-12-14] MEDS: LOSARTAN 50 MG TABLET PO SCH (09:19)
[2016-12-14] MEDS: ATORVASTATIN 40 MG TABLET PO SCH (09:19)
[2016-12-14] MEDS: LORazepam 0.5 MG TABLET PO SCH (09:20)
[2016-12-14] MEDS: DOCUSATE SODIUM 100 MG CAPSULE PO SCH (09:20)
[2016-12-14] MEDS: PANTOPRAZOLE 40 MG TABLET PO SCH (09:20)
[2016-12-14 14:37] VITALS: BP 148/79
--- NOTE | 2016-12-14 19:10 | Cardiology Progress Note ---
Assessment and Plan (1) Nausea Status: Acute Assessment and plan: 12/13/16: Patient appears to be stable from a cardiac standpoint at this time. Regular heart rate, blood pressure has been fairly well controlled. He could have some diastolic heart failure. Continue some low dose Lasix, might decrease in all follow-up His nausea could have multiple etiologies. We will defer to GI medicine His blood pressure is labile. I suspect he may have some obstructive sleep apnea which could be contributing to some of his problems. given his dementia , there may not be much rx for this dx He is probably about the best we can do. His prognosis is very guarded. 12/14/16-Plan/recommendation: Has diastolic heart failure. Probably has some cirrhosis, see the CT. his albumin is low, which would be consistent with this diagnosis. May be is nauseated related to some of his dementia medications. He is off them now. He will be discharged. I have an appointment to see him on about 12/19. Will keep that appointment. His prognosis is guarded. I am suspicious he also has untreated sleep apnea. I conferred care with his nurse for follow-up. (2) Generalized weakness Status: Acute (3) Dementia Status: Chronic (4) Coronary artery disease Status: Acute (5) Essential hypertension Status: Acute (6) Diastolic heart failure Status: Acute (7) Suspected sleep apnea Status: Acute Cardiology - PN: Subj Interval history: Somewhat short of breath, but better. Slightly less nausea Exam (Progress Note) - Constitutional Vitals: Period Temp Pulse Resp BP Sys/Puente Pulse Ox Last 24 Hr 96.8 F-98.6 F 57-95 18-20 118-159/62-90 90-98 Exam: HEENT: Pupils equal, reactive to light and accommodation Neck: NoJVD or bruit Lungs clear to auscultation Heart: Regular rhythm rate with normal S1 and S2. Apical S4 Abdomen: No hepatosplenomegaly Spine/extremities: No clubbing, cyanosis, or edema Neuro: Nonfocal Psych: No depression or anxiety Result/EKG - Labs CBC & BMP: 12/12/16 09:21 12/11/16 06:50 Lab Results: I have reviewed the past 24 hour labs Labs: Laboratory Results - last 24 hr 12/14/16 10:17 Random Cortisol 13.0 - Diagnostic Findings Procedure: CT Abdomen and Pelvis: report reviewed by me - EKG EKG results: interpreted by me Specialty Discharge - Follow Up or Referrals Follow up with: Bimal Cam MD [Physician] - 2 Weeks (SCHEDULED FOR HIDA SCAN AT [facility] [place] AT [address]AM-DO NOT EAT OR DRINK ANYTIME AFTER MIDNIGHT) Gsu Nunez MD [Physician] - (As is scheduled in the next 2 or 3 weeks. It may be 12/19 or 12/21.)
== END 2016-12-14 13:15 | disposition home or self-care (01) | DRG 682 ==
LOC: UNDODISIN → N.ED 10:09 → N.EDINP 11:53 → N.4E 12:35
PROVIDERS: ADMIT Family Medicine; ATTEND Family Medicine

== ENCOUNTER 2017-01-04 21:22 | Observation (INO) ==
[2017-01-04] MEDS ORDERED: MORPHINE 2 MG/1 ML SYRINGE IM STA (22:48)
[2017-01-04] MEDS ORDERED: ONDANSETRON 4 MG/2 ML VIAL IM STA (22:48)
[2017-01-04] MEDS ORDERED: MORPHINE 2 MG/1 ML SYRINGE ONE (22:51)
[2017-01-04] MEDS ORDERED: ONDANSETRON 4 MG/2 ML VIAL ONE (22:51)
[2017-01-04 22:57] LABS: Apearance,Urine CLEAR (Clear); Bilirubin,Urine Negative (Negative); Blood, Urine Negative (Negative); Glucose,Urine (UA) Negative (Negative); Hyaline Casts,Urine 4 /LPF (0-3); Ketones,Urine 5 mg/dL (Negative); Mucus,Urine Occasional /LPF (Occasional); Nitrite,Urine Negative (Negative); Protein,Urine Negative; RBC,Urine <1 /HPF (0-4); Squamous Epithelial Cell,Urine Occasional /HPF (0-10); Urine Color Yellow (Yellow); Urine Specific Gravity 1.015 (1.001-1.035); Urine Urobilinogen < 2.0 EU/DL (0.2-1.0)
[2017-01-04] MEDS ORDERED: ACETAMINOPHEN 325 MG TABLET PO PRN (23:26)
[2017-01-04] MEDS ORDERED: TAMSULOSIN 0.4 MG CAPSULE PO SCH (23:30)
--- NOTE | 2017-01-04 23:30 | Emergency Department Note ---
I, Chelsea Shaikh, am scribing for, and in the presence of, Matthew Patten MD 22:39. ISandor Kevin Lee, MD, personally performed the services described in this documentation, ascribed by Chelsea Shaikh in my presence, and it is both accurate and complete 329 . Arrival - Arrival Chief Complaint: Urogenital - Male Stated Complaint: POST OP COMPLICATIONS ED Nursing Triage Note: states that patient has not voided since 10:30am this morning. Patient had a cholecystectomy this morning with Dr. Wade. States that patient has dranks 2 small cups of water and a large pitcher of ice. Patient complains of right sided abdominal pain upon triage. Mode of Arrival: Wheelchair Limitations: No Limitations Source: Patient, Significant other, Old Records Reviewed, RN Notes Reviewed - History of Present Illness HPI Narrative: Pt is a 86 y/o male who presents to the ED for further evaluation of inabilty to void with an onset 1030 this morning. stated that pt underwent Cholecystectomy today performed by Dr. Wade and since surgery pt has not been able to void. confirmed that pt has had fluid intake and that pt has the urgency to void. denies any use of tobacco. She continued to note that since surgery, pt has only had 1 [place] for pain. Nurse noted that pt also complained of right sided abd pain. Pt has a PMHx of HTN, CAD, anxiety disorder , depression, dementia, stricture, BPH, and 2 stents. No other problems/ complaints reported in ED. Onset (ago): hour(s) Consistency: constant Severity: moderate Allergies/Adverse Reactions: Allergies Allergy/AdvReac Type Severity Reaction Status Date / Time sulfamethoxazole Allergy Severe RASH; Verified 01/04/17 06:21 [From Bactrim] Severly Inflammed/Red trimethoprim [From Bactrim] Allergy Severe RASH Verified 01/04/17 06:21 Home Medications: Home Medications Medication Instructions Recorded Confirmed Type Aspirin [Ecotrin] 81 mg PO QAM 06/16/15 01/04/17 History Atorvastatin [Lipitor] 40 mg PO QAM 06/16/15 01/04/17 History Losartan/Hydrochlorothiazide 1 each PO QAM 06/16/15 01/04/17 History [Losartan-Hctz 50-12.5 mg Tab] Pantoprazole Sodium [Protonix] 40 mg PO QPM 06/16/15 01/04/17 History Tamsulosin HCl [Flomax] 0.4 mg PO BEDTIME 06/16/15 01/04/17 History HydrOXYzine PAMOATE CAP [Vistaril 25 mg PO TID 04/24/16 01/04/17 History Cap] Nitroglycerin Sl Tab [Nitrostat] 0.4 mg SL Q5M PRN #1 bottle 04/26/16 01/04/17 Rx Magnesium Chloride [Slow Mag] 64 mg PO BEDTIME 08/03/16 01/04/17 History LORazepam TAB [Ativan Tab] 0.5 mg PO Q6HR PRN 08/30/16 01/04/17 History Ibuprofen [Advil] 200 mg PO Q6HR PRN 12/10/16 01/04/17 History Ondansetron Tab [Zofran Tab] 4 mg PO Q4-6H PRN 12/10/16 01/04/17 History Acetaminophen Tab [Tylenol Tab] 650 mg PO Q6H PRN #0 tablet 12/14/16 01/04/17 Rx Furosemide Tab [Lasix Tab] 20 mg PO DAILY PRN 01/01/17 01/04/17 History QUEtiapine [SEROquel] 25 mg PO BEDTIME 01/01/17 01/04/17 History HYDROcodone/ACETAMIN 7.5-325 1 tablet PO Q4H PRN #45 tablet 01/04/17 01/04/17 Rx [[place] 7.5-325] Review of System - Review of System 12 point system: reviewed and no additional remarkable complaints except as stated - Review of System Gastrointestinal: Present: as per HPI, abdominal pain (right sided abd pain ) Genitourinary male: Present: as per HPI, other (inability to void) Medical,Surgical,& Family Hx - Medical History Cardio: History of: CAD, Hypertension, 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) Psychological: History of: Anxiety Disorders, Depression Neurology: History of: Dementia No history of: Seizures HEENT: History of: Ear Problem (hard of hearing), Eye Problem (Poor Vision), Dental Problems (dentures) Endocrine: History of: Dyslipidemia Respiratory: No history of: Pneumonia (Hx Pneum Vac), Respiratory Problems (Flu Vac Current ) Renal: History of: Renal Problems (stricture) Genitourinary: History of: Prostate Problems (BPH) Gastrointestinal: History of: GERD, GI Problems (Nausea-Non Functioning GB) Musculoskeletal: History of: Back/Neck Problems (neck surgery) Other: No history of: Anesthesia Reactions - Surgical History Cardiac Surgeries: Sugical HX of: Cardiac Catheterization (STENT X'S 2013) Neurologic Surgeries: Surgical HX of: Neurologic Surgery (neck surgery (Pinched Nerve 1990)) HEENT Surgeries: Surgical HX of: Eye Surgery (Cataract Surgery) Abdominal Surgeries: Surgical HX of: Abdominal Surgery ( vagotomy ( Related to Ulcers/Acids)), Appendectomy, EGD Patient denies: Cholecystectomy (01/09/17), Colonoscopy Reproductive Surgeries: Surgical HX of;: Prostate Surgery (For Enlarged Prostate ) Orthopedic Surgeries: Surgical HX of;: Orthopedic Surgery (right shoulder) - Family History Family History: Reports;: Family Cancer (Brother, Mother) Comment Only: Family Diabetes (Mother), Family Hypertension (Mother) - Social History Smoking Status: Former smoker Frequency of Alcohol Use: None Type of Drug Use: None Exam Vital Signs: Vital Signs Temperature 97.0 F L 01/04/17 22:02 Pulse Rate 85 01/04/17 22:02 Respiratory Rate 20 01/04/17 22:02 Blood Pressure 143/83 01/04/17 22:02 O2 Sat by Pulse Oximetry 93 L 01/04/17 22:02 - General General appearance: alert - Head Head exam: Present: atraumatic, normocephalic - Eye Eye exam: Present: normal appearance, PERRL, EOMI - ENT ENT exam: Present: normal oropharynx, mucous membranes moist, TM's normal bilaterally, normal external ear exam - Neck Neck exam: Present: full ROM, trachea midline. Absent: tenderness, meningismus , lymphadenopathy, thyromegaly - Respiratory Respiratory exam: Present: normal lung sounds bilaterally. Absent: respiratory distress - Cardiovascular Cardiovascular exam: Present: regular rate, normal rhythm, normal heart sounds. Absent: murmur, rubs, gallop - Abdominal Exam Abdominal exam: Present: tenderness (scars consistant with previous Chloecystectomy surgery) - Neurological Exam Neurological exam: Present: alert, oriented X3, CN II-XII intact. Absent: motor sensory deficit - Skin Skin exam: Present: other (scars consistant with previous Chloecystectomy surgery) Course Course Narrative: pt and family very concerned will admit obs and cont bashir at this time Results - Labs Lab Results: I have reviewed the patients labs Labs: Laboratory Tests 01/04/17 22:45 Urine pH 5.0 Ur Specific [place] 1.015 Urine Ketones 5 Urine Urobilinogen < 2.0 H Urine RBC <1 Ur Squamous Epith Cells Occasional Hyaline Casts 4 Urine Mucus Occasional Disposition Clinical Impression: Acute retention of urine Case discussed with: patient Disposition: Still a Patient
[2017-01-04 23:58] LABS: Basophils % 0.1 % (0.0-0.8); Hematocrit 35.1 VOL% (42.0-52.0); Hemoglobin 11.8 GM/DL (14.0-18.0); Immature Granulocytes % 0.2 %; Immature Granulocytes Absolute 0.02 #; Lymphocytes # 0.7 10*3/uL (1.4-4.0); Mean Corpuscular HGB Conc 33.6 GM/DL (32-36); Mean Corpuscular Hemoglobin 29 PG (27-34); Mean Corpuscular Volume 87.5 FL (87-102); Monocytes # 0.5 10*3/uL (0.11-0.8); Monocytes % 5.7 % (1.7-12.7); Neutrophils # 7.2 10*3/uL (1.4-7.4); Platelet Count 183 T/CUMM (130-400); Red Blood Count 4.01 MC/CUMM (3.8-5.5); White Blood Count 8.4 T/CUMM (4-12)
[2017-01-05 00:18] LABS: Calcium 8.8 MG/DL (8.5-10.1); Osmolality,Calculated 283.4 MOS/KG (273-304); Potassium 4.1 MMOL/L (3.5-5.1)
[2017-01-05] MEDS: DEXTROSE 5% NACL 0.45% 1,000 ML IV SCH ×2 (01:37→12:58)
--- NOTE | 2017-01-05 07:08 | General Surg History&Physical ---
Assessment and Plan (1) Acute retention of urine Status: Acute Assessment and plan: The patient had a Alexis catheter placed overnight and he was placed on Flomax. His catheter was made at 4 AM. He has not voided by 10 AM we will get a bladder scan. I will also let Dr. Collins noted the patient is in the hospital because he is a primary patient of his. Current Visit: Yes History of Present Illness Chief complaint: unable to urinate History of present illness: Mr. Hernandez is a 86 year old male admitted to the hospital following laparoscopic cholecystectomy who developed urinary retention at home and came back to the ER. A Alexis catheter was placed with a liter of urine and he was admitted for observation. He was placed on Flomax last night and his Alexis catheter was removed at 4:00 this morning. Today he is resting comfortably in bed and has no complaints. There is no family in the room with him. Home Medications Medication Instructions Recorded Confirmed Type Aspirin [Ecotrin] 81 mg PO QAM 06/16/15 01/04/17 History Atorvastatin [Lipitor] 40 mg PO QAM 06/16/15 01/04/17 History Losartan/Hydrochlorothiazide 1 each PO QAM 06/16/15 01/04/17 History [Losartan-Hctz 50-12.5 mg Tab] Pantoprazole Sodium [Protonix] 40 mg PO QPM 06/16/15 01/04/17 History Tamsulosin HCl [Flomax] 0.4 mg PO BEDTIME 06/16/15 01/04/17 History HydrOXYzine PAMOATE CAP [Vistaril 25 mg PO TID 04/24/16 01/04/17 History Cap] Nitroglycerin Sl Tab [Nitrostat] 0.4 mg SL Q5M PRN #1 bottle 04/26/16 01/04/17 Rx Magnesium Chloride [Slow Mag] 64 mg PO BEDTIME 08/03/16 01/04/17 History LORazepam TAB [Ativan Tab] 0.5 mg PO Q6HR PRN 08/30/16 01/04/17 History Ibuprofen [Advil] 200 mg PO Q6HR PRN 12/10/16 01/04/17 History Ondansetron Tab [Zofran Tab] 4 mg PO Q4-6H PRN 12/10/16 01/04/17 History Acetaminophen Tab [Tylenol Tab] 650 mg PO Q6H PRN #0 tablet 12/14/16 01/04/17 Rx Furosemide Tab [Lasix Tab] 20 mg PO DAILY PRN 01/01/17 01/04/17 History QUEtiapine [SEROquel] 25 mg PO BEDTIME 01/01/17 01/04/17 History HYDROcodone/ACETAMIN 7.5-325 1 tablet PO Q4H PRN #45 tablet 01/04/17 01/04/17 Rx [[place] 7.5-325] Allergies Allergy/AdvReac Type Severity Reaction Status Date / Time sulfamethoxazole Allergy Severe RASH; Verified 01/04/17 06:21 [From Bactrim] Severly Inflammed/Red trimethoprim [From Bactrim] Allergy Severe RASH Verified 01/04/17 06:21 Medical,Surgical,& Family Hx - Medical History Cardio: History of: CAD, Hypertension, 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) Psychological: History of: Anxiety Disorders, Depression Neurology: History of: Dementia No history of: Seizures HEENT: History of: Ear Problem (hard of hearing), Eye Problem (Poor Vision), Dental Problems (dentures) Endocrine: History of: Dyslipidemia Respiratory: No history of: Pneumonia (Hx Pneum Vac), Respiratory Problems (Flu Vac Current 2015/2016) Renal: History of: Renal Problems (stricture) Genitourinary: History of: Prostate Problems (BPH) Gastrointestinal: History of: GERD, GI Problems (Nausea-Non Functioning GB) Musculoskeletal: History of: Back/Neck Problems (neck surgery) Other: No history of: Anesthesia Reactions - Surgical History Cardiac Surgeries: Sugical HX of: Cardiac Catheterization (STENT X'S 2013) Neurologic Surgeries: Surgical HX of: Neurologic Surgery (neck surgery (Pinched Nerve 1990)) HEENT Surgeries: Surgical HX of: Eye Surgery (Cataract Surgery) Abdominal Surgeries: Surgical HX of: Abdominal Surgery (1959'S vagotomy ( Related to Ulcers/Acids)), Appendectomy, EGD Patient denies: Cholecystectomy (01/09/17 Sched), Colonoscopy Reproductive Surgeries: Surgical HX of;: Prostate Surgery (For Enlarged Prostate ) Orthopedic Surgeries: Surgical HX of;: Orthopedic Surgery (right shoulder) - Family History Family History: Reports;: Family Cancer (Brother, Mother) Comment Only: Family Diabetes (Mother), Family Hypertension (Mother) - Social History Smoking Status: Former smoker Frequency of Alcohol Use: None Type of Drug Use: None Exam - Constitutional Vitals: Period Temp Pulse Resp BP Sys/Puente Pulse Ox Last 24 Hr 97.9 F-98.4 F 67-93 16-20 104-135/64-83 93-94 General appearance: normal weight, no acute distress - Head Head exam: Present: normal inspection, normocephalic - Eye Eye exam: Present: EOMI Pupils: Present: DOMINICK - ENT ENT exam: Present: normal exam Mouth exam: Present: normal external inspection, normal voice - Neck Neck exam: Present: normal inspection, trachea midline - Respiratory Respiratory exam: Present: clear to auscultation bilaterally. Absent: accessory muscle use, chest wall tenderness - Cardiovascular Cardiovascular exam: Present: RRR. Absent: systolic murmur, tachycardia - GI/Abdominal GI/Abdominal exam: Present: normal bowel sounds, tenderness (expected post- operative tenderness), soft. Absent: guarding, rebound - Extremities Exam Extremities exam: Present: normal inspection, normal capillary refill - Back Exam Back exam: Present: normal inspection - Neurological Exam Neurological exam: Present: alert, oriented X3 Speech: Present: normal - Skin Skin exam: Present: normal color, warm - Constitutional Constitutional: Present: as per HPI - EENT Nose, mouth and throat: Present: as per HPI - Cardiovascular Cardiovascular: Present: as per HPI - Respiratory Respiratory: Present: as per HPI - Gastrointestinal Gastrointestinal: Present: as per HPI - Genitourinary Genitourinary: Present: as per HPI - Musculoskeletal Musculoskeletal: Present: as per HPI - Neurological Neurological: Present: as per HPI - Endocrine Endocrine: Present: as per HPI Hematologic/Lymphatic: Present: as per HPI Results - Labs CBC & BMP: 01/04/17 23:53 01/04/17 23:53
[2017-01-05] MEDS ORDERED: NITROGLYCERIN SL 0.4 MG TABLET SL PRN (07:13)
[2017-01-05] MEDS ORDERED: ONDANSETRON 4 MG TABLET PO PRN (07:13)
[2017-01-05] MEDS ORDERED: IBUPROFEN 200 MG TABLET PO PRN (07:13)
[2017-01-05] MEDS ORDERED: FUROSEMIDE 20 MG TABLET PO PRN (07:13)
[2017-01-05] MEDS: ONDANSETRON 4 MG/2 ML VIAL IV PRN (08:49)
[2017-01-05] MEDS: TAMSULOSIN 0.4 MG CAPSULE PO SCH ×2 (08:54→21:06)
[2017-01-05] MEDS: PANTOPRAZOLE 40 MG TABLET PO SCH ×2 (09:40→18:20)
[2017-01-05] MEDS: LOSARTAN/HCTZ 50-12.5 MG TABLET PO SCH (09:40)
[2017-01-05] MEDS: ASPIRIN EC 81 MG TABLET PO SCH (09:40)
[2017-01-05] MEDS: ATORVASTATIN 40 MG TABLET PO SCH (09:40)
[2017-01-05] MEDS: HydrOXYzine PAMOATE 25 MG CAPSULE PO SCH ×3 (09:40→21:08)
[2017-01-05] MEDS: LORazepam 0.5 MG TABLET PO PRN ×2 (10:23→16:48)
[2017-01-05] MEDS: QUEtiapine 25 MG TABLET PO SCH (21:06)
[2017-01-05] MEDS: MAGNESIUM CHLORIDE 64 MG TABLET PO SCH (21:07)
[2017-01-06] MEDS: DEXTROSE 5% NACL 0.45% 1,000 ML IV SCH ×2 (02:36→16:12)
[2017-01-06] MEDS: LORazepam 0.5 MG TABLET PO PRN ×2 (02:46→10:43)
[2017-01-06] MEDS: ONDANSETRON 4 MG/2 ML VIAL IV PRN ×3 (02:46→17:48)
--- NOTE | 2017-01-06 10:13 | Event Note ---
He feels better. He is afebrile with stable vital signs and has no abdominal pain. He is voiding some today. We will need to check his post void residuals. If he is voiding adequately then we can hopefully discharge him home.
[2017-01-06] MEDS: TAMSULOSIN 0.4 MG CAPSULE PO SCH ×2 (10:31→20:13)
[2017-01-06] MEDS: HydrOXYzine PAMOATE 25 MG CAPSULE PO SCH ×3 (10:32→20:15)
[2017-01-06] MEDS: ATORVASTATIN 40 MG TABLET PO SCH (10:32)
[2017-01-06] MEDS: ASPIRIN EC 81 MG TABLET PO SCH (10:33)
[2017-01-06] MEDS: PANTOPRAZOLE 40 MG TABLET PO SCH ×2 (10:43→20:10)
[2017-01-06] MEDS: LOSARTAN/HCTZ 50-12.5 MG TABLET PO SCH (10:44)
[2017-01-06] MEDS: QUEtiapine 25 MG TABLET PO SCH (20:13)
[2017-01-06] MEDS: MAGNESIUM CHLORIDE 64 MG TABLET PO SCH (20:14)
[2017-01-07] MEDS: DEXTROSE 5% NACL 0.45% 1,000 ML IV SCH (06:05)
[2017-01-07] MEDS: ONDANSETRON 4 MG/2 ML VIAL IV PRN (07:42)
[2017-01-07] MEDS: LOSARTAN/HCTZ 50-12.5 MG TABLET PO SCH (09:16)
[2017-01-07] MEDS: TAMSULOSIN 0.4 MG CAPSULE PO SCH (09:16)
[2017-01-07] MEDS: ASPIRIN EC 81 MG TABLET PO SCH (09:16)
[2017-01-07] MEDS: HydrOXYzine PAMOATE 25 MG CAPSULE PO SCH (09:17)
[2017-01-07] MEDS: ATORVASTATIN 40 MG TABLET PO SCH (09:17)
[2017-01-07] MEDS: PANTOPRAZOLE 40 MG TABLET PO SCH (09:17)
[2017-01-07] MEDS: LORazepam 0.5 MG TABLET PO PRN (10:09)
--- NOTE | 2017-01-07 12:00 | Discharge Summary ---
Hospital Course - Hospital Course Hospital Course: He was admitted with inability to void. This has gradually resolved in the hospital and he is voiding normally today without difficulty. He is ambulatory. He is not having any abdominal complaints and is afebrile with stable vital signs. Discharge Plan - Discharge Data Disposition: Disch To Home/Self Care Condition at Discharge: Stable Discharge Diet: advance to your usual diet Activity: resume usual activities as tolerated - Discharge Medications No Action Losartan/Hydrochlorothiazide [Losartan-Hctz 50-12.5 mg Tab] 1 each PO QAM Atorvastatin [Lipitor] 40 mg PO QAM Aspirin [Ecotrin] 81 mg PO QAM Tamsulosin HCl [Flomax] 0.4 mg PO BEDTIME Pantoprazole Sodium [Protonix] 40 mg PO QPM HydrOXYzine PAMOATE CAP [Vistaril Cap] 25 mg PO TID Nitroglycerin Sl Tab [Nitrostat] 0.4 mg SL Q5M PRN #1 bottle PRN Reason: Chest Pain Magnesium Chloride [Slow Mag] 64 mg PO BEDTIME LORazepam TAB [Ativan Tab] 0.5 mg PO Q6HR PRN PRN Reason: Anxiety Ibuprofen [Advil] 200 mg PO Q6HR PRN PRN Reason: Pain Mild To Moderate (1-7) Acetaminophen Tab [Tylenol Tab] 650 mg PO Q6H PRN #0 tablet PRN Reason: Fever > 100.4 Or Headache QUEtiapine [SEROquel] 25 mg PO BEDTIME Ondansetron Tab [Zofran Tab] 4 mg PO Q4-6H PRN PRN Reason: Nausea/Vomiting Furosemide Tab [Lasix Tab] 20 mg PO DAILY PRN PRN Reason: Fluid Retention HYDROcodone/ACETAMIN 7.5-325 [[place] 7.5-325] 1 tablet PO Q4H PRN #45 tablet PRN Reason: Pain - Follow Up or Referral Follow Up: Savage Wade MD [Physician] - 1 Week - Forms/Instructions Exam - Constitutional Vitals: Period Temp Pulse Resp BP Sys/Puente Pulse Ox Last 24 Hr 97.7 F-99.0 F 51-80 16-19 110-135/62-74 90-96 DS: Provider Date of admission: 01/04/17 23:26 Primary care physician: . No PCP Attending physician on admission: Savage Wade MD Consults: 01/05/17 01:03 Consult to Pharmacy [CONS] Routine Reason for Pharmacy Consult: Adjust Meds Renal Funct 01/05/17 07:03 Consult to Physician [CONS] Routine Comment: established patient Consulting Provider: Jose Collins Consulting Provider Notified: Yes When should Consulting Provider be notified: Now Person Notified: linnea linares Date Notified: 01/05/17 Time Notified: 08:39 Discharging clinician: Lazaro Arteaga III.,
[2017-01-07 12:54] VITALS: BP 155/89
== END 2017-01-07 12:55 | disposition home or self-care (01) ==
LOC: N.ED 21:22 → N.EDINP 21:22 → N.3E 01-05 00:07
PROVIDERS: ADMIT Surgery; ATTEND Surgery

== ENCOUNTER 2018-01-15 11:39 | Inpatient (IN) ==
[2018-01-15] MEDS ORDERED: ASPIRIN 325 MG TABLET PO STA (12:35)
[2018-01-15] MEDS ORDERED: FUROSEMIDE 100 MG/10 ML VIAL IV STA (12:35)
[2018-01-15] MEDS ORDERED: methylPREDNISolone SOD SUC 125 MG/2 ML VIAL IV STA (12:35)
[2018-01-15 12:46] LABS: Basophils % 0.9 % (0.0-0.8); Eosinophils # 0.1 10*3/uL (0.0-0.87); Eosinophils % 1.9 % (0.00-10.9); Hematocrit 36.9 VOL% (42.0-52.0); Hemoglobin 12.3 GM/DL (14.0-18.0); Immature Granulocytes % 0.2 %; Immature Granulocytes Absolute 0.01 #; Lymphocytes # 1.2 10*3/uL (1.4-4.0); Lymphocytes % 25.1 % (21.2-54.2); Mean Corpuscular HGB Conc 33.3 GM/DL (32-36); Mean Corpuscular Hemoglobin 30 PG (27-34); Mean Corpuscular Volume 90.9 FL (87-102); Mean Platelet Volume 10.7 FL (9.6-12.0); Monocytes # 0.3 10*3/uL (0.11-0.8); Monocytes % 6.6 % (1.7-12.7); Neutrophils # 3.1 10*3/uL (1.4-7.4); Neutrophils % 65.3 % (38.7-73.9); Platelet Count 165 T/CUMM (130-400); Red Blood Count 4.06 MC/CUMM (3.8-5.5); Red Cell Distribution Width 13.4 % (9.3-17.3); White Blood Count 4.7 T/CUMM (4-12)
[2018-01-15 12:50] LABS: INR 1.2; PT Patient Result 12.3 SECS
[2018-01-15 12:54] LABS: Apearance,Urine CLEAR (Clear); Bilirubin,Urine Negative (Negative); Blood, Urine Negative (Negative); Glucose,Urine (UA) Negative (Negative); Ketones,Urine Negative (Negative); Mucus,Urine Occasional /LPF (Occasional); Nitrite,Urine Negative (Negative); Protein,Urine Negative; RBC,Urine 1 /HPF (0-4); Urine Color Yellow (Yellow); Urine Urobilinogen < 2.0 EU/DL (0.2-1.0)
[2018-01-15] MEDS ORDERED: ALBUTEROL 2.5 MG/3 ML NEB RESP TX SCH (13:00)
[2018-01-15 13:03] LABS: Alanine Aminotransferase 25 U/L (16-61); Albumin 3.4 G/DL (3.4-5.0); Alkaline Phosphatase 98 U/L (45-117); Aspartate Amino Transferase 17 U/L (0-37); Blood Urea Nitrogen 29 MG/DL (7-18); Calcium 8.5 MG/DL (8.5-10.1); Glucose 105 MG/DL (74-106); Osmolality,Calculated 282.5 MOS/KG (273-304); Potassium 4.1 MMOL/L (3.5-5.1); Sodium 139 MMOL/L (136-145); Troponin I Only < 0.015 NG/ML (0.00-0.045)
[2018-01-15] MEDS ORDERED: methylPREDNISolone SOD SUC 125 MG/2 ML VIAL ONE (13:14)
[2018-01-15] MEDS ORDERED: FUROSEMIDE 20 MG/2 ML VIAL ONE (13:14)
[2018-01-15] MEDS ORDERED: ASPIRIN 325 MG TABLET ONE (13:15)
[2018-01-15] MEDS ORDERED: ONDANSETRON 4 MG/2 ML VIAL IV PRN (18:52)
[2018-01-15] MEDS ORDERED: ALBUTEROL/IPRATROPIUM 3 ML NEB RESP TX PRN (18:52)
[2018-01-15] MEDS ORDERED: NITROGLYCERIN SL 0.4 MG TABLET SL PRN (18:52)
[2018-01-15] MEDS ORDERED: MORPHINE 2 MG/1 ML SYRINGE IV PRN (18:52)
[2018-01-15] MEDS ORDERED: ACETAMINOPHEN 325 MG TABLET PO PRN (18:52)
[2018-01-15] MEDS ORDERED: FUROSEMIDE 20 MG TABLET PO PRN (18:52)
[2018-01-15] MEDS: methylPREDNISolone SOD SUC 40 MG/1 ML VIAL IV SCH (20:39)
[2018-01-15] MEDS: cefTRIAXone 1,000 MG in SYRINGE 1 EACH IV SCH (20:40)
[2018-01-15] MEDS: MEMANTINE 5 MG TABLET PO SCH (20:41)
[2018-01-15] MEDS: MAGNESIUM CHLORIDE 64 MG TABLET PO SCH (20:41)
[2018-01-15] MEDS: PANTOPRAZOLE 40 MG TABLET PO SCH (20:42)
[2018-01-15] MEDS: LORazepam 0.5 MG TABLET PO SCH (20:42)
[2018-01-15] MEDS: DOCUSATE SODIUM 100 MG CAPSULE PO SCH (20:42)
[2018-01-15] MEDS: TAMSULOSIN 0.4 MG CAPSULE PO SCH (20:42)
[2018-01-15] MEDS: SODIUM CHLORIDE 0.9% 1,000 ML IV SCH (20:42)
[2018-01-15] MEDS: QUEtiapine 25 MG TABLET PO SCH (20:42)
[2018-01-16] MEDS: IBUPROFEN 200 MG TABLET PO PRN (02:39)
[2018-01-16] MEDS: methylPREDNISolone SOD SUC 40 MG/1 ML VIAL IV SCH ×3 (04:52→20:40)
[2018-01-16 06:17] LABS: Basophils % 0.2 % (0.0-0.8); Hematocrit 38.2 VOL% (42.0-52.0); Hemoglobin 13.1 GM/DL (14.0-18.0); Immature Granulocytes % 0.4 %; Immature Granulocytes Absolute 0.02 #; Lymphocytes # 0.8 10*3/uL (1.4-4.0); Lymphocytes % 13.3 % (21.2-54.2); Mean Corpuscular HGB Conc 34.3 GM/DL (32-36); Mean Corpuscular Hemoglobin 30 PG (27-34); Mean Corpuscular Volume 87.4 FL (87-102); Mean Platelet Volume 10.3 FL (9.6-12.0); Monocytes # 0.2 10*3/uL (0.11-0.8); Monocytes % 3.2 % (1.7-12.7); Neutrophils # 4.7 10*3/uL (1.4-7.4); Neutrophils % 82.9 % (38.7-73.9); Platelet Count 184 T/CUMM (130-400); Red Blood Count 4.37 MC/CUMM (3.8-5.5); Red Cell Distribution Width 13.2 % (9.3-17.3); White Blood Count 5.6 T/CUMM (4-12)
[2018-01-16 06:55] LABS: Albumin 3.5 G/DL (3.4-5.0); Bilirubin,Total 0.9 MG/DL (0.2-1.0); Calcium 8.8 MG/DL (8.5-10.1); Osmolality,Calculated 290.3 MOS/KG (273-304); Potassium 4.3 MMOL/L (3.5-5.1); Risk Ratio 2.16; Total Protein 6.2 G/DL (6.4-8.3); VLDL CHOLESTEROL 11.2 MG/DL
[2018-01-16] MEDS ORDERED: PANTOPRAZOLE 40 MG VIAL IV SCH (09:00)
[2018-01-16] MEDS: LORazepam 0.5 MG TABLET PO SCH ×2 (09:27→20:37)
[2018-01-16] MEDS: LOSARTAN/HCTZ 50-12.5 MG TABLET PO SCH (09:27)
[2018-01-16] MEDS: DOCUSATE SODIUM 100 MG CAPSULE PO SCH ×2 (09:28→20:37)
[2018-01-16] MEDS: QUEtiapine 25 MG TABLET PO SCH ×2 (09:28→20:37)
[2018-01-16] MEDS: MEMANTINE 5 MG TABLET PO SCH ×2 (09:28→20:37)
[2018-01-16] MEDS: ATORVASTATIN 20 MG TABLET PO SCH (09:28)
[2018-01-16] MEDS: ASPIRIN EC 81 MG TABLET PO SCH (09:28)
[2018-01-16] MEDS: HydrOXYzine PAMOATE 25 MG CAPSULE PO SCH (13:31)
[2018-01-16] MEDS: TAMSULOSIN 0.4 MG CAPSULE PO SCH (17:13)
[2018-01-16] MEDS: SODIUM CHLORIDE 0.9% 1,000 ML IV SCH (18:01)
[2018-01-16] MEDS: MAGNESIUM CHLORIDE 64 MG TABLET PO SCH (20:37)
[2018-01-16] MEDS: PANTOPRAZOLE 40 MG TABLET PO SCH (20:37)
[2018-01-16] MEDS: cefTRIAXone 1,000 MG in SYRINGE 1 EACH IV SCH (20:40)
[2018-01-17] MEDS: methylPREDNISolone SOD SUC 40 MG/1 ML VIAL IV SCH ×3 (04:07→21:04)
[2018-01-17] MEDS: IBUPROFEN 200 MG TABLET PO PRN ×2 (04:08→18:18)
[2018-01-17] MEDS: SODIUM CHLORIDE 0.9% 1,000 ML IV SCH ×3 (07:55→18:07)
[2018-01-17] MEDS: MEMANTINE 5 MG TABLET PO SCH ×2 (08:55→20:56)
[2018-01-17] MEDS: ATORVASTATIN 20 MG TABLET PO SCH (08:55)
[2018-01-17] MEDS: ASPIRIN EC 81 MG TABLET PO SCH (08:55)
[2018-01-17] MEDS: LOSARTAN/HCTZ 50-12.5 MG TABLET PO SCH (08:55)
[2018-01-17] MEDS: LORazepam 0.5 MG TABLET PO SCH ×2 (08:55→20:56)
[2018-01-17] MEDS: DOCUSATE SODIUM 100 MG CAPSULE PO SCH ×2 (08:55→20:57)
[2018-01-17] MEDS: QUEtiapine 25 MG TABLET PO SCH ×2 (09:00→20:56)
[2018-01-17] MEDS: HydrOXYzine PAMOATE 25 MG CAPSULE PO SCH (13:23)
[2018-01-17] MEDS: TAMSULOSIN 0.4 MG CAPSULE PO SCH ×2 (16:29→17:57)
[2018-01-17] MEDS: PANTOPRAZOLE 40 MG TABLET PO SCH (20:56)
[2018-01-17] MEDS: MAGNESIUM CHLORIDE 64 MG TABLET PO SCH (20:57)
[2018-01-17] MEDS: cefTRIAXone 1,000 MG in SYRINGE 1 EACH IV SCH (20:57)
[2018-01-18] MEDS: SODIUM CHLORIDE 0.9% 1,000 ML IV SCH ×2 (00:13→10:05)
[2018-01-18] MEDS: methylPREDNISolone SOD SUC 40 MG/1 ML VIAL IV SCH (04:39)
[2018-01-18 07:36] VITALS: BP 147/80
[2018-01-18] MEDS: LOSARTAN/HCTZ 50-12.5 MG TABLET PO SCH (09:34)
[2018-01-18] MEDS: MEMANTINE 5 MG TABLET PO SCH (09:34)
[2018-01-18] MEDS: ASPIRIN EC 81 MG TABLET PO SCH (09:34)
[2018-01-18] MEDS: ATORVASTATIN 20 MG TABLET PO SCH (09:34)
[2018-01-18] MEDS: LORazepam 0.5 MG TABLET PO SCH (09:34)
[2018-01-18] MEDS: DOCUSATE SODIUM 100 MG CAPSULE PO SCH (09:34)
[2018-01-18] MEDS: QUEtiapine 25 MG TABLET PO SCH (09:34)
[2018-01-18 09:35] LABS: Calcium 8.3 MG/DL (8.5-10.1); Osmolality,Calculated 284.7 MOS/KG (273-304); Potassium 4.3 MMOL/L (3.5-5.1)
== END 2018-01-18 11:43 | disposition home health service (06) | DRG 202 ==
LOC: N.ED 11:39 → N.EDINP 16:01 → N.TELEN 18:44
PROVIDERS: ADMIT Family Medicine; ATTEND Family Medicine